=== PATIENT | male | born 1995 | race Caucasian/White ===

== ENCOUNTER 2021-06-13 15:09 | Emergency (ER) | payer SELFPAY ==
[2021-06-13] MEDS ORDERED: Ondansetron 4 MG/2 ML SDV IVPUSH ONE (15:40)
[2021-06-13] MEDS ORDERED: Sodium Chloride 0.9% 1,000 ML IV ONE (15:40)
--- NOTE | 2021-06-13 15:48 | EDM.PDOC ---
ED HPI GENERAL MEDICAL PROBLEM - General Chief Complaint: Gastrointestinal Problem Stated Complaint: VOMITING Time Seen by Provider: 06/13/21 15:24 Source of Information: Reports: Patient History Limitations: Reports: No Limitations - History of Present Illness INITIAL COMMENTS - FREE TEXT/NARRATIVE: 25-year-old male presents emergency department with complaints of vomiting and generalized abdominal cramping. Patient states he woke this morning and at about 9 AM did vomit. He states he has vomited 4 times since then. He states that whenever he tries to drink any fluids causes him to vomit. Also complains of generalized abdominal cramping associated with the vomiting. States that last evening about 6:00 he had chicken fried steak for supper but felt fine when he went to bed. He had 4 beers last evening and states he does drink on occasion but he is not a regular drinker. He states that the first time he vomited today he did note some blood in the emesis. Also complains of subjective fever and chills, generalized body aches, fatigue, cough and very minimal diarrhea. He does admit to vaping for the past 7 years however he denies any recreational drug use. He states he is otherwise healthy. 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 ED EXAM, GI/ABD - Physical Exam Exam: See Below Exam Limited By: No Limitations General Appearance: Alert, WD/WN, Mild Distress Ears: Normal External Exam, Hearing Grossly Normal Nose: Normal Inspection Throat/Mouth: Normal Inspection, Normal Lips, Normal Voice, No Airway Compromise Head: Atraumatic Neck: Normal Inspection, Supple Respiratory/Chest: No Respiratory Distress, Lungs Clear, Normal Breath Sounds, No Accessory Muscle Use, Chest Non-Tender Cardiovascular: Normal Peripheral Pulses, Regular Rate, Rhythm, No Edema, No Murmur GI/Abdominal Exam: Normal Bowel Sounds, Soft, No Distention, Tender (Generalized) (Male) Exam: Deferred Rectal (Males) Exam: Deferred Extremities: Normal Inspection Neurological: Alert, Oriented, Normal Cognition Psychiatric: Normal Affect, Normal Mood Skin Exam: Warm, Dry, Intact, Normal Color, No Rash Lymphatic: No Adenopathy Course - Vital Signs Text/Narrative:: As stated above, patient presents with 4 episodes of vomiting as well as generalized abdominal pain that started about 9 AM this morning. He also has numerous symptoms consistent with Covid. He is hemodynamically stable at the time of my exam. Physical exam is essentially unremarkable other than generalized abdominal tenderness with palpation. We will obtain a Covid sample. Also order lab studies to include a CBC, CMP, magnesium and a C-reactive protein. We will give the patient a liter of IV normal saline as well as 4 mg of IV Zofran. Last Recorded V/S: Last Vital Signs Temp 97.6 F 06/13/21 15:29 Pulse 71 06/13/21 15:29 Resp 20 06/13/21 15:29 BP 128/78 06/13/21 15:29 Pulse Ox 97 06/13/21 15:29 - Orders/Labs/Meds Labs: Laboratory Tests 06/13/21 06/13/21 06/13/21 Range/Units 15:30 15:55 15:55 WBC 7.39 (4.23-9.07) K/mm3 RBC 5.09 (4.63-6.08) M/mm3 Hgb 15.6 (13.7-17.5) gm/dl Hct 43.1 (40.1-51.0) % MCV 84.7 (79.0-92.2) fl MCH 30.6 (25.7-32.2) pg MCHC 36.2 H (32.2-35.5) g/dl RDW Std Deviation 40.1 (35.1-43.9) fL Plt Count 221 (163-337) K/mm3 MPV 10.8 (9.4-12.3) fl Neut % (Auto) 84.2 H (34.0-67.9) % Lymph % (Auto) 8.7 L (21.8-53.1) % [place] % (Auto) 6.4 (5.3-12.2) % Eos % (Auto) 0.4 L (0.8-7.0) Baso % (Auto) 0.0 L (0.1-1.2) % Neut # (Auto) 6.23 H (1.78-5.38) K/mm3 Lymph # (Auto) 0.64 L (1.32-3.57) K/mm3 [place] # (Auto) 0.47 (0.30-0.82) K/mm3 Eos # (Auto) 0.03 L (0.04-0.54) K/mm3 Baso # (Auto) 0.00 L (0.01-0.08) K/mm3 Sodium 136 (136-145) mEq/L Potassium 4.9 (3.5-5.1) mEq/L Chloride 102 (98-107) mEq/L Carbon Dioxide 27 (21-32) mEq/L Anion Gap 11.9 (5-15) BUN 10 (7-18) mg/dL Creatinine 1.0 (0.7-1.3) mg/dL Est Cr Clr Drug Dosing 126.10 mL/min Estimated GFR (MDRD) > 60 (>60) mL/min BUN/Creatinine Ratio 10.0 L (14-18) Glucose 119 H (70-99) mg/dL Calcium 9.5 (8.5-10.1) mg/dL Magnesium 1.9 (1.8-2.4) mg/dL Total Bilirubin 0.8 (0.2-1.0) mg/dL AST 26 (15-37) U/L ALT 77 H (16-63) U/L Alkaline Phosphatase 72 (46-116) U/L C-Reactive Protein <0.2 (<1.0) mg/dL Total Protein 8.8 H (6.4-8.2) g/dl Albumin 4.7 (3.4-5.0) g/dl Globulin 4.1 gm/dL Albumin/Globulin Ratio 1.2 (1-2) SARS-CoV-2 RNA (BANDAR) Negative (NEGATIVE) Meds: Medications Discontinued Medications Generic Name Dose Route Start Last Admin Trade Name Freq PRN Reason Stop Dose Admin Sodium Chloride 1,000 mls @ 999 mls/hr 06/13/21 15:40 06/13/21 15:59 Normal Saline IV 06/13/21 16:40 999 mls/hr ONETIME ONE Administration Ondansetron HCl 4 mg 06/13/21 15:40 06/13/21 15:57 Ondansetron 4 Mg/2 Ml Sdv IVPUSH 06/13/21 15:41 4 mg ONETIME ONE Administration - Re-Assessments/Exams Free Text/Narrative Re-Assessment/Exam: 06/13/21 16:42 Hematology is essentially unremarkable Chemistry reveals a glucose of 119, AST 26, ALT 77, C-reactive protein less than 0.2, magnesium 1.9 Patient is Covid negative Patient states that he is feeling much better. His nausea has resolved. Will allow him to be discharged home once his IV fluids have infused. We will send a prescription to his pharmacy for Zofran ODT. Patient is agreeable to this plan. Departure - Departure Time of Disposition: 16:46 Disposition: Home, Self-Care 01 Condition: Good Clinical Impression: Gastroenteritis - Discharge Information Prescriptions: Ondansetron [Zofran ODT] 4 mg PO Q6H PRN #12 tab.dis PRN Reason: Nausea/Vomiting Referrals: PCP,Not In Area [Primary Care Provider] - Forms: ED Department Discharge Sepsis Event Note (ED) - Focused Exam Vital Signs: Vital Signs Temp Pulse Resp BP Pulse Ox 06/13/21 15:29 97.6 F 71 20 128/78 97
== END 2021-06-13 17:15 | disposition home or self-care (01) ==
LOC: JD.ED 15:09
DX: K52.9 Noninfective gastroenteritis and colitis, unspecified (principal); Z88.0 Allergy status to penicillin; Z72.0 Tobacco use; Z20.822 Contact with and (suspected) exposure to COVID-19
CPT/HCPCS: 36415; 80053; 83735; 85025; 86140; 87635; 96374; 99284; J2405; J7030; U0002